=== PATIENT | male | born 1950 | race Caucasian/White ===

== ENCOUNTER 2019-04-17 08:39 | Emergency (ER) | payer MEDICARE, OTHER ==
--- NOTE | 2019-04-17 09:06 | ED Physician Documentation ---
PD HPI ABD PAIN - Stated complaint Stated Complaint: ABD PX - Chief complaint Chief Complaint: Abd Pain - History obtained from History obtained from: Patient - History of Present Illness Timing - onset: How many hours ago (5), Today Timing - duration: Hours (5) Timing - details: Abrupt onset, Still present Quality: Aching, Sharp, Pain Location: RUQ, Epigastric Radiation: Upper back Improved by: No: Laying still, Vomiting, Position Worsened by: Moving, Palpation. No: Breathing, Position Associated symptoms: Nausea, Vomiting (couple of times), Loss of appetite. No: Fever, Diarrhea, Constipation, Chest pain Similar symptoms before: No diagnosis (had similar episode couple of weeks ago lasting 1-2 hours then improved without particular treatment. That was also at 4 am.) Recently seen: Not recently seen Review of Systems Constitutional: denies: Fever, Chills, Myalgias Nose: denies: Rhinorrhea / runny nose, Congestion Throat: denies: Sore throat Cardiac: denies: Chest pain / pressure, Palpitations Respiratory: denies: Dyspnea, Cough GI: reports: Abdominal Pain, Nausea, Vomiting. denies: Constipation, Diarrhea : denies: Dysuria, Frequency Neurologic: denies: Generalized weakness, Focal weakness, Near syncope PD PAST MEDICAL HISTORY - Past Medical History Past Medical History: Yes Cardiovascular: Hypertension Respiratory: None Neuro: None Endocrine/Autoimmune: None - Past Surgical History Past Surgical History: No - Present Medications Home Medications: Ambulatory Orders Medication Instructions Recorded Confirmed Atenolol [Tenormin] 04/17/19 Dicyclomine [Bentyl] 10 mg PO QID PRN #15 capsule 04/17/19 Hydrocodone/Acetaminophen [Enola 1 each PO Q6H PRN #15 tablet 04/17/19 5-325 Tablet] Ondansetron Odt [Zofran] 4 mg TL Q6H PRN #10 tablet 04/17/19 - Allergies Allergies/Adverse Reactions: Allergies Allergy/AdvReac Type Severity Reaction Status Date / Time No Known Drug Allergies Allergy Verified 04/17/19 09:03 PD ED PE NORMAL - Vitals Vital signs reviewed: Yes - General General: Alert and oriented X 3, No acute distress, Well developed/nourished - HEENT HEENT: Moist mucous membranes, Pharynx benign - Neck Neck: Supple, no meningeal sign, No adenopathy - Cardiac Cardiac: RRR, No murmur - Respiratory Respiratory: Clear bilaterally - Abdomen Abdomen: Normal bowel sounds, Soft, Non distended, No organomegaly, Other (very tender epigastric and RUQ with guarding and percussion tender. No rebound. Bowel sounds decreased. Soft reducible umbilical hernia noted. ) - Back Back: No CVA TTP - Derm Derm: Normal color, Warm and dry - Neuro Neuro: Alert and oriented X 3, No motor deficit, Normal speech Results - Vitals Vitals: Vital Signs - 24 hr 04/17/19 04/17/19 04/17/19 08:45 09:27 11:41 Temperature 36.9 C Heart Rate 57 L 57 L 76 Respiratory 18 18 18 Rate Blood Pressure 140/79 H 122/79 148/84 H O2 Saturation 95 98 96 04/17/19 12:31 Temperature 36.8 C Heart Rate 76 Respiratory 12 Rate Blood Pressure 137/81 H O2 Saturation 93 Oxygen O2 Source Room air - Labs Labs: Laboratory Tests 04/17/19 04/17/19 04/17/19 09:00 09:00 11:22 WBC 6.7 RBC 4.61 L Hgb 16.8 Hct 46.9 MCV 101.7 H MCH 36.4 H MCHC 35.8 RDW 13.9 Plt Count 123 L MPV 11.3 Neut # (Auto) 4.4 Lymph # (Auto) 1.7 [place] # (Auto) 0.5 Eos # (Auto) 0.0 Baso # (Auto) 0.0 Absolute Nucleated RBC 0.00 Nucleated RBC % 0.0 Sodium 135 Potassium 3.5 Chloride 101 Carbon Dioxide 24 Anion Gap 10.0 BUN 5 L Creatinine 0.6 Estimated GFR (MDRD) 134 Glucose 174 H Calcium 8.6 Total Bilirubin 1.7 H AST 127 H ALT 60 Alkaline Phosphatase 109 Total Protein 7.7 Albumin 4.2 Globulin 3.5 Albumin/Globulin Ratio 1.2 Lipase 37 Urine Color DARK YELLOW Urine Clarity CLEAR Urine pH 6.0 Ur Specific [place] 1.025 Urine Protein NEGATIVE Urine Glucose (UA) NEGATIVE Urine Ketones TRACE Urine Occult Blood SMALL H Urine Nitrite NEGATIVE Urine Bilirubin NEGATIVE Urine Urobilinogen 0.2 (NORMAL) Ur Leukocyte Esterase NEGATIVE Urine RBC 6-10 H Urine WBC 0-3 Ur Squamous Epith Cells RARE Squamous Urine Bacteria Rare Ur Microscopic Review INDICATED Urine Culture Comments NOT INDICATED - Rads (name of study) abd U/s Radiology: Prelim report reviewed (dependent sludge, no stones, no wall thickening. ), See rad report PD MEDICAL DECISION MAKING - ED course Complexity details: reviewed results (dependent sludge in gallbladder without stones nor wall thickness. ), re-evaluated patient (feeling resolution of the pain after meds/fluids. Recheck abd is not tender at all now. ), considered differential (symptoms seem c/w gallbladder. Will get labs and U/S.), d/w patient Departure - Departure Disposition: 01 Home, Self Care Clinical Impression: Upper abdominal pain, Biliary colic Condition: Stable Record reviewed to determine appropriate education?: Yes Instructions: ED Abdominal Pain Gallstone Poss Follow-Up: Indira Messina MD [Primary Care Provider] - Prescriptions: Dicyclomine [Bentyl] 10 mg PO QID PRN #15 capsule PRN Reason: Abdominal Pain Hydrocodone/Acetaminophen [Enola 5-325 Tablet] 1 each PO Q6H PRN #15 tablet PRN Reason: Pain Ondansetron Odt [Zofran] 4 mg TL Q6H PRN #10 tablet PRN Reason: Nausea / Vomiting Comments: Stay well-hydrated. Low-fat diet for several days to week. Your ultrasound shows some sludge but no stones and no signs of inflammation of the gallbladder. Your symptoms sound like gallbladder spasm but not confirmed. Use the ondansetron for nausea and dicyclomine for pain or cramps periodically if needed. Add hydrocodone if needed for worse pain. See if you have further episodes in the near future. If so follow-up with your primary care regarding further testing of the gallbladder. Return to the ER if worsening symptoms or symptoms unrelieved by the above medication. Discharge Date/Time: 04/17/19 12:31
[2019-04-17 09:08] LABS: BASOPHILS % (AUTO) 0.4 %; EOSINOPHILS % (AUTO) 0.3 %; HGB - HEMOGLOBIN 16.8 g/dL (14.0-18.0); LYMPHOCYTES # (AUTO) 1.7 10^3/uL (1.5-3.5); LYMPHOCYTES % (AUTO) 25.6 %; MEAN CORPUSCULAR HEMOGLOBIN 36.4 pg (27.0-31.0); MEAN CORPUSCULAR HGB CONC 35.8 g/dL (32.0-36.0); MEAN CORPUSCULAR VOLUME 101.7 fL (80.0-94.0); MEAN PLATELET VOLUME 11.3 fL (7.4-11.4); MONOCYTES # (AUTO) 0.5 10^3/uL (0.0-1.0); MONOCYTES % (AUTO) 7.8 %; NEUTROPHILS # (AUTO) 4.4 10^3/uL (1.5-6.6); NEUTROPHILS % (AUTO) 65.5 %; PLT - PLATELET COUNT 123 10^3/uL (130-450); RED BLOOD COUNT 4.61 10^6/uL (4.70-6.10); RED CELL DISTRIBUTION WIDTH 13.9 % (12.0-15.0); WHITE BLOOD COUNT 6.7 x10^3/uL (4.8-10.8)
[2019-04-17] MEDS ORDERED: KETOROLAC 15 MG/ML VIAL IVP STA (09:12)
[2019-04-17] MEDS ORDERED: ONDANSETRON 4 MG/2 ML VIAL IVP STA (09:12)
[2019-04-17] MEDS ORDERED: HYDROmorphone 1 MG/ML CARPUJECT IVP STA (09:12)
[2019-04-17] MEDS ORDERED: SODIUM CHLORIDE 0.9% 1,000 ML IV ONE (09:12)
[2019-04-17] MEDS ORDERED: ACETAMINOPHEN 1,000 MG/100 ML 100 ML IV STA (09:12)
[2019-04-17 09:19] LABS: ALBUMIN 4.2 g/dL (3.2-5.5); ALBUMIN/GLOBULIN RATIO 1.2 (1.0-2.2); BILIRUBIN,TOTAL 1.7 mg/dL (0.2-1.0); CALCIUM 8.6 mg/dL (8.5-10.3); CREATININE 0.6 mg/dL (0.6-1.2); TOTAL PROTEIN 7.7 g/dL (6.7-8.2)
--- NOTE | 2019-04-17 11:31 | Ultrasound Report ---
Reason: upper abd pain onset this AM Procedure Date: 04/17/2019 Accession Number: [id number] / [id number] Procedure: US - Abdomen Limited CPT Code: Final Report FULL RESULT: EXAM: ABDOMEN ULTRASOUND LIMITED, RUQ EXAM DATE: 04/17/2019 10:56 AM. CLINICAL HISTORY: Upper abd pain onset this AM. COMPARISON: None. TECHNIQUE: Real-time scanning was performed with static images obtained. FINDINGS: Liver: The parenchyma is echogenic diffusely with coarse echotexture. No definite focal masses are identified, but evaluation is limited secondary to the echogenicity. Right lower lobe measured 18.2 cm. Main portal vein flow: Hepatopetal. Gallbladder: Dependent sludge. No stones, wall thickening. No apparent sonographic Bautista's sign, however patient is reportedly on pain medication which can limit evaluation. Biliary System: CBD measures 4 mm. No intrahepatic or extrahepatic ductal dilatation. Other: The visualized pancreas was unremarkable. Right kidney measured 14.6 cm longitudinally and contained a anechoic lower pole cysts measuring up to 4.5 cm. IMPRESSION: 1. Fatty infiltrated liver. 2. Dependent gallbladder sludge, otherwise unremarkable gallbladder. No shadowing gallstone or gallbladder wall thickening. No biliary ductal dilatation. 3. Simple right renal cyst. [facility]
[2019-04-17 11:48] LABS: BILIRUBIN,URINE NEGATIVE (NEGATIVE); GLUCOSE, URINE (UA) NEGATIVE (NEGATIVE); KETONES,URINE (UA) TRACE mg/dL (NEGATIVE); LEUKOCYTE ESTERASE, URINE NEGATIVE (NEGATIVE); NITRITE,URINE NEGATIVE (NEGATIVE); OCCULT BLOOD,URINE SMALL (NEGATIVE); PROTEIN,URINE NEGATIVE (NEGATIVE); UROBILINOGEN,URINE 0.2 (NORMAL) E.U./dL (NORMAL)
[2019-04-17 11:50] LABS: CLARITY,URINE CLEAR (CLEAR)
[2019-04-17 12:05] LABS: BACTERIA,URINE Rare /HPF (None Seen); SQUAMOUS EPITHELIAL CELL,UR RARE Squamous (<= Few)
[2019-04-17 12:34] VITALS: BP 137/81
== END 2019-04-17 12:31 | disposition home or self-care (01) ==
LOC: ED 08:39
DX: K82.8 Other specified diseases of gallbladder (principal); K42.9 Umbilical hernia without obstruction or gangrene; K76.0 Fatty (change of) liver, not elsewhere classified; Q61.01 Congenital single renal cyst; I10 Essential (primary) hypertension
CPT/HCPCS: 36415; 76705; 80053; 81001; 83690; 85025; 96361; 96365; 96375; 99284; J0131; J1170; 81003; 87086

== ENCOUNTER 2021-01-13 12:40 | Outpatient (CLI) | payer MEDICARE, OTHER | END 2021-01-13 12:41 | disposition home or self-care (01) | LOC: COV 12:40 | PROVIDERS: ATTEND Dermatology MOHS-Micrographic Surgery | DX: Z01.812 Encounter for preprocedural laboratory examination (principal); Z20.822 Contact with and (suspected) exposure to COVID-19 ==